=== PATIENT | male | born 1960 | race Caucasian/White ===

== ENCOUNTER 2017-07-28 09:26 | Emergency (ER) | payer OTHER ==
[2017-07-28] MEDS ORDERED: cloNIDine 0.1 MG TABLET PO STA (10:03)
--- NOTE | 2017-07-28 10:06 | ED Physician Documentation ---
History of Present Illness - Stated complaint Stated Complaint: HIGH BP - Chief complaint Chief Complaint: General - History obtained from History obtained from: Patient, Family - History of Present Illness Timing: How many days ago (3) - Additonal information Additional information: 56-year-old male with a history of hypertension has developed increased pressure that was noticed at his eye doctor's office. He has had diastolics over 110. He is on 2 medications for his hypertension he denies any excessive salt load. On further questioning he did have excessive salt load on the night prior to his initial high reading. This was 3 days ago. He indicates that last night he did not have any significant salt load. Review of Systems Constitutional: denies: Fever Eyes: denies: Decreased vision Ears: denies: Ear pain Nose: denies: Congestion Throat: denies: Sore throat Cardiac: denies: Chest pain / pressure, Palpitations Respiratory: denies: Dyspnea, Cough GI: denies: Abdominal Pain, Nausea, Vomiting : denies: Dysuria, Frequency Neurologic: reports: Headache. denies: Generalized weakness, Focal weakness, Numbness, Difficulty speaking, Head injury, LOC PD PAST MEDICAL HISTORY - Past Medical History Past Medical History: Yes Cardiovascular: Hypertension Respiratory: None Endocrine/Autoimmune: None GI: Colon polyps : None HEENT: None Psych: None Musculoskeletal: None Derm: None - Past Surgical History Past Surgical History: Yes General: Colonoscopy - Present Medications Home Medications: Ambulatory Orders Medication Instructions Recorded Confirmed Carvedilol 3.125 mg PO DAILY 09/12/14 09/12/14 Lisinopril 2.5 mg PO DAILY 09/12/14 09/12/14 Meloxicam 07/28/17 cloNIDine [Catapres] 0.1 mg PO BID #20 tablet 07/28/17 - Allergies Allergies/Adverse Reactions: Allergies Allergy/AdvReac Type Severity Reaction Status Date / Time No Known Drug Allergies Allergy Verified 09/12/14 08:08 - Social History Does the pt smoke?: No Smoking Status: Never smoker PD ED PE NORMAL - Vitals Vital signs reviewed: Yes (hypertensive marked ) - General General: Alert and oriented X 3, No acute distress, Well developed/nourished - HEENT HEENT: Atraumatic, PERRL, EOMI - Neck Neck: Supple, no meningeal sign - Cardiac Cardiac: RRR, No murmur - Respiratory Respiratory: No respiratory distress, Clear bilaterally - Abdomen Abdomen: Soft, Non tender - Back Back: No CVA TTP, No spinal TTP - Derm Derm: Normal color, Warm and dry, No rash - Extremities Extremities: No deformity, No edema - Neuro Neuro: Alert and oriented X 3, 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, No motor deficit, No sensory deficit, Normal speech Eye Opening: Spontaneous Motor: Obeys Commands Verbal: Oriented GCS Score: 15 - Psych Psych: Normal mood, Normal affect Results - Vitals Vitals: Vital Signs - 24 hr 07/28/17 07/28/17 07/28/17 09:30 10:20 11:05 Temperature 35.5 C L 36.3 C L Heart Rate 86 81 94 Respiratory 17 16 14 Rate Blood Pressure 193/130 H 166/126 H 153/122 H O2 Saturation 97 95 94 Oxygen O2 Source Room air - EKG (time done) 0946 Rate: Rate (enter#) (80) Rhythm: NSR Ischemia: Normal ST segments Other comments: Other comments (RSR' in V1) Compare to prior EKG: Old EKG unavailable Computer interpretation: Agree with computer - Labs Labs: Laboratory Tests 07/28/17 07/28/17 07/28/17 10:18 10:18 10:18 WBC 5.2 RBC 4.93 Hgb 15.7 Hct 46.0 MCV 93.3 MCH 31.8 H MCHC 34.1 RDW 12.8 Plt Count 182 MPV 8.1 Neut # 3.2 Lymph # 1.5 [place] # 0.4 Eos # 0.1 Baso # 0.0 Absolute Nucleated RBC 0.00 Nucleated RBC % 0.0 Sodium 137 Potassium 3.8 Chloride 104 Carbon Dioxide 23 Anion Gap 10.0 BUN 14 Creatinine 0.8 Estimated GFR (MDRD) 100 Glucose 113 H Calcium 9.0 Total Bilirubin 0.9 AST 23 ALT 26 Alkaline Phosphatase 41 L Troponin I < 0.04 Total Protein 7.1 Albumin 4.2 Globulin 2.9 Albumin/Globulin Ratio 1.4 Lipase 21 L Procedures - IVC sono (time) 1000 Bedside IVC sono: IVC measures (cm) (2.2), Euvolemia PD MEDICAL DECISION MAKING - ED course Complexity details: reviewed results, re-evaluated patient, considered differential, d/w patient, d/w family ED course: 56-year-old male with history of hypertension has had a salt load the night prior to his initial high readings (the pastrami pizza) and he has diastolics over 120. This morning he comes in with a headache and a diastolic of 130. He has normal volume by interrogation of the inferior vena cava and he is administered clonidine 0.1 mg orally. This does improve his blood pressure and I have encouraged him to avoid salt and repeat his blood pressure this evening after taking his medications and I have provided clonidine to take for diastolic elevation. I hesitate to add this medication to his regimen as I suspect he may not need this. Departure - Departure Disposition: Home, Self Care Clinical Impression: Hypertensive urgency Condition: Stable Instructions: Risk Factors High Blood Pressure, Choices Low Salt, ED Hypertension Conf Out Of Control Follow-Up: Sacha Son MD [Primary Care Provider] - Prescriptions: cloNIDine [Catapres] 0.1 mg PO BID #20 tablet Comments: Avoid salt in general and take your medications as usually prescribed. Take your blood pressure this evening after taking her blood pressure medication and if you still have diastolic blood pressure over 110 start taking the clonidine regularly.
[2017-07-28 10:28] LABS: BASOPHILS % (AUTO) 0.8 %; EOSINOPHILS # (AUTO) 0.1 10^3/uL (0.0-0.7); EOSINOPHILS % (AUTO) 1.9 %; HGB - HEMOGLOBIN 15.7 g/dL (14.0-18.0); LYMPHOCYTES # (AUTO) 1.5 10^3/uL (1.5-3.5); LYMPHOCYTES % (AUTO) 28.7 %; MEAN CORPUSCULAR HEMOGLOBIN 31.8 pg (27.0-31.0); MEAN CORPUSCULAR HGB CONC 34.1 g/dL (32.0-36.0); MEAN CORPUSCULAR VOLUME 93.3 fL (80.0-94.0); MEAN PLATELET VOLUME 8.1 fL (7.4-11.4); MONOCYTES # (AUTO) 0.4 10^3/uL (0.0-1.0); MONOCYTES % (AUTO) 7.4 %; NEUTROPHILS # (AUTO) 3.2 10^3/uL (1.5-6.6); NEUTROPHILS % (AUTO) 61.2 %; PLT - PLATELET COUNT 182 10^3/uL (130-450); RED BLOOD COUNT 4.93 10^6/uL (4.70-6.10); RED CELL DISTRIBUTION WIDTH 12.8 % (12.0-15.0); WHITE BLOOD COUNT 5.2 x10^3/uL (4.8-10.8)
[2017-07-28 10:41] LABS: ALBUMIN 4.2 g/dL (3.2-5.5); ALBUMIN/GLOBULIN RATIO 1.4 (1.0-2.2); BILIRUBIN,TOTAL 0.9 mg/dL (0.2-1.0); CREATININE 0.8 mg/dL (0.6-1.2); TOTAL PROTEIN 7.1 g/dL (6.7-8.2)
[2017-07-28 12:56] VITALS: BP 137/109
== END 2017-07-28 13:03 | disposition home or self-care (01) ==
LOC: ED 09:26
DX: I10 Essential (primary) hypertension (principal)
CPT/HCPCS: 36415; 80053; 83690; 84484; 85025; 93005; 99283; 99284; A9270

== ENCOUNTER 2018-04-27 22:13 | Emergency (ER) | payer OTHER ==
[2018-04-27 22:34] LABS: BILIRUBIN,URINE NEGATIVE (NEGATIVE); GLUCOSE, URINE (UA) NEGATIVE (NEGATIVE); KETONES,URINE (UA) 15 mg/dL (NEGATIVE); LEUKOCYTE ESTERASE, URINE NEGATIVE (NEGATIVE); NITRITE,URINE NEGATIVE (NEGATIVE); OCCULT BLOOD,URINE MODERATE (NEGATIVE); PROTEIN,URINE NEGATIVE (NEGATIVE); UROBILINOGEN,URINE 0.2 (NORMAL) E.U./dL (NORMAL)
[2018-04-27 22:36] LABS: CLARITY,URINE CLEAR (CLEAR)
--- NOTE | 2018-04-27 22:38 | ED Physician Documentation ---
PD HPI MALE - Stated complaint Stated Complaint: MALE - Chief complaint Chief Complaint: Abd Pain - History obtained from History obtained from: Patient - History of Present Illness Timing - onset: How many days ago Timing - details: Abrupt onset, Intermittant, Waxing and waning Pain level max: 6 Pain level now: 4 Associated symptoms: Hematuria, Abdominal pain Similar symptoms before: Has not had sx before Recently seen: Not recently seen - Additional information Additional information: has noticed dark urine for past 2 days, increased his fluid intake and this initially improved but worsened again today. tonight, he developed discomfort from scrotum up to suprapubic area and LLQ associated with nausea and vomiting. denies back pain. has had some painful urination. Review of Systems Constitutional: reports: Reviewed and negative Cardiac: reports: Reviewed and negative Respiratory: reports: Reviewed and negative GI: reports: Abdominal Pain, Nausea, Vomiting. denies: Constipation, Diarrhea : reports: Dysuria (mild), Frequency, Hematuria PD PAST MEDICAL HISTORY - Past Medical History Cardiovascular: Hypertension Respiratory: None Endocrine/Autoimmune: None GI: Colon polyps : None HEENT: None Psych: None Musculoskeletal: None Derm: None - Past Surgical History Past Surgical History: Yes General: Colonoscopy - Present Medications Home Medications: Ambulatory Orders Medication Instructions Recorded Confirmed Carvedilol 3.125 mg PO DAILY 09/12/14 09/12/14 Lisinopril 2.5 mg PO DAILY 09/12/14 09/12/14 Meloxicam 07/28/17 cloNIDine [Catapres] 0.1 mg PO BID #20 tablet 07/28/17 HYDROcod/ACETAM 5/325 [[place] 5/325] 1 - 2 ea PO Q6H PRN #15 tablet 04/28/18 Tamsulosin [Flomax] 0.4 mg PO DAILY #10 capsule 04/28/18 - Allergies Allergies/Adverse Reactions: Allergies Allergy/AdvReac Type Severity Reaction Status Date / Time No Known Drug Allergies Allergy Verified 04/27/18 22:19 - Social History Does the pt smoke?: No Smoking Status: Never smoker Does the pt drink ETOH?: Yes Does the pt have substance abuse?: No - Immunizations Immunizations are current?: Yes PD ED PE NORMAL - Vitals Vital signs reviewed: Yes - General General: Alert and oriented X 3, No acute distress, Well developed/nourished - Cardiac Cardiac: RRR, No murmur - Respiratory Respiratory: No respiratory distress, Clear bilaterally - Abdomen Abdomen: Soft, Non tender - Back Back: No CVA TTP Results - Vitals Vitals: Oxygen O2 Source Room air - Labs Labs: Laboratory Tests 04/27/18 04/27/18 04/27/18 22:25 23:25 23:25 WBC 6.3 RBC 4.67 L Hgb 15.2 Hct 43.9 MCV 94.1 H MCH 32.7 H MCHC 34.7 RDW 12.9 Plt Count 225 MPV 8.1 Neut # (Auto) 3.8 Lymph # (Auto) 1.8 [place] # (Auto) 0.5 Eos # (Auto) 0.1 Baso # (Auto) 0.1 Absolute Nucleated RBC 0.00 Nucleated RBC % 0.1 Sodium 138 Potassium 3.8 Chloride 102 Carbon Dioxide 21 Anion Gap 15.0 H BUN 33 H Creatinine 1.3 H Estimated GFR (MDRD) 57 L Glucose 100 Calcium 8.9 Urine Color YELLOW Urine Clarity CLEAR Urine pH 5.0 Ur Specific [place] >=1.030 H Urine Protein NEGATIVE Urine Glucose (UA) NEGATIVE Urine Ketones 15 H Urine Occult Blood MODERATE H Urine Nitrite NEGATIVE Urine Bilirubin NEGATIVE Urine Urobilinogen 0.2 (NORMAL) Ur Leukocyte Esterase NEGATIVE Urine RBC 0-5 Urine WBC 0-3 Ur Squamous Epith Cells NONE SEEN Urine Bacteria None Seen Ur Microscopic Review INDICATED Urine Culture Comments NOT INDICATED - Rads (name of study) CT A/P Radiology: Prelim report reviewed, See rad report PD MEDICAL DECISION MAKING - ED course Complexity details: reviewed results, re-evaluated patient, considered differential, d/w patient ED course: CT reveals small (2mm x 2mm) left UVJ ureteral calculus with mild hydroureter. his symptoms were mostly mild during ED stay, although immediately prior to d/c, as we were reviewing discharge instructions, he had sudden increase in pain that was the most severe since he had been in ED. I offered IM medications, but he was comfortable with 2 PO vicodin now and wanted to be discharged after he took them. he appeared to be more comfortable as he left the ED (and this was before the hydrocodone would have had a chance to take effect). provided strainer, rx for flomax and vicodin Departure - Departure Disposition: Home, Self Care Clinical Impression: Renal colic Condition: Good Instructions: ED Stone Renal W Colic Follow-Up: Sacha Son MD [Primary Care Provider] - (3-5 days if symptoms have not resolved) Prescriptions: HYDROcod/ACETAM 5/325 [[place] 5/325] 1 - 2 ea PO Q6H PRN #15 tablet PRN Reason: Pain Tamsulosin [Flomax] 0.4 mg PO DAILY #10 capsule Discharge Date/Time: 04/28/18 00:33
[2018-04-27 22:50] LABS: BACTERIA,URINE None Seen /HPF (None Seen); RBC,URINE 0-5 /HPF (0-5); SQUAMOUS EPITHELIAL CELL,UR NONE SEEN (<= Few)
[2018-04-27] MEDS ORDERED: PHENAZOPYRIDINE 100 MG TABLET PO STA (23:02)
[2018-04-27] MEDS ORDERED: PHENAZOPYRIDINE 100 MG TABLET PO ONE (23:21)
[2018-04-27 23:37] LABS: BASOPHILS # (AUTO) 0.1 10^3/uL (0.0-0.1); BASOPHILS % (AUTO) 1.2 %; EOSINOPHILS # (AUTO) 0.1 10^3/uL (0.0-0.7); EOSINOPHILS % (AUTO) 2.2 %; HGB - HEMOGLOBIN 15.2 g/dL (14.0-18.0); LYMPHOCYTES # (AUTO) 1.8 10^3/uL (1.5-3.5); LYMPHOCYTES % (AUTO) 28.5 %; MEAN CORPUSCULAR HEMOGLOBIN 32.7 pg (27.0-31.0); MEAN CORPUSCULAR HGB CONC 34.7 g/dL (32.0-36.0); MEAN CORPUSCULAR VOLUME 94.1 fL (80.0-94.0); MEAN PLATELET VOLUME 8.1 fL (7.4-11.4); MONOCYTES # (AUTO) 0.5 10^3/uL (0.0-1.0); MONOCYTES % (AUTO) 8.4 %; NEUTROPHILS # (AUTO) 3.8 10^3/uL (1.5-6.6); NEUTROPHILS % (AUTO) 59.7 %; PLT - PLATELET COUNT 225 10^3/uL (130-450); RED BLOOD COUNT 4.67 10^6/uL (4.70-6.10); RED CELL DISTRIBUTION WIDTH 12.9 % (12.0-15.0); WHITE BLOOD COUNT 6.3 x10^3/uL (4.8-10.8)
[2018-04-27 23:41] LABS: CALCIUM 8.9 mg/dL (8.5-10.3); CREATININE 1.3 mg/dL (0.6-1.2)
--- NOTE | 2018-04-27 23:56 | CT Report ---
Reason: hematuria, left flank pain Procedure Date: 04/27/2018 Accession Number: [id number] / [id number] Procedure: CT - Abdomen/Pelvis W/O CPT Code: FULL RESULT: EXAM: CT ABDOMEN AND PELVIS (CT KUB) EXAM DATE: 04/27/2018 11:40 PM. CLINICAL HISTORY: Hematuria, left flank pain. COMPARISONS: ABDOMEN/PELVIS W/ 02/14/2014 10:59 AM. TECHNIQUE: Routine axial helical CT imaging was performed through the abdomen and pelvis without IV contrast. Reconstructions: Coronal and sagittal. In accordance with CT protocol optimization, one or more of the following dose reduction techniques were utilized for this exam: automated exposure control, adjustment of mA and/or KV based on patient size, or use of iterative reconstructive technique. FINDINGS: Lung Bases: Unremarkable. Right Kidney/Ureter: No stones, hydronephrosis, or hydroureter. Tiny right renal cyst. Left Kidney/Ureter: Moderately obstructing 2 x 2 mm distal left ureteral stone within a few millimeters of the UVJ. Otherwise grossly unremarkable. Other Abdominal Organs: Noncontrast images of the abdominal organs are grossly unremarkable. Peritoneal Cavity: No free fluid, free air or brooke adenopathy. No excessive stool burden. Bowel is grossly unremarkable with exception of colonic diverticulosis. Pelvic Organs: No bladder stones or gross wall thickening. Of note, the urinary bladder dome extends into a right inguinal hernia. Noncontrast images of the visualized pelvic organs are unremarkable. Vasculature: Unremarkable. Other: Moderate to large right and small left inguinal hernias. Right inguinal hernia contains the bladder dome. IMPRESSION: 1. Moderately obstructing 2 x 2 mm distal left ureteral stone. 2. Moderate to large right inguinal hernia contains the bladder dome. 3. Small fat-containing left inguinal hernia. 4. Colonic diverticulosis. RADIA
[2018-04-28 00:06] VITALS: BP 144/100
[2018-04-28] MEDS ORDERED: HYDROcod/ACET 5/325 Prepack 4 PO STA (00:24)
[2018-04-28] MEDS ORDERED: TAMSULOSIN 0.4 MG CAPSULE PO STA (00:24)
== END 2018-04-28 00:33 | disposition home or self-care (01) ==
LOC: ED 22:13
DX: N20.1 Calculus of ureter (principal); K40.20 Bilateral inguinal hernia, without obstruction or gangrene, not specified as recurrent; K57.30 Diverticulosis of large intestine without perforation or abscess without bleeding; I10 Essential (primary) hypertension
CPT/HCPCS: 36415; 74176; 80048; 81001; 85025; 99283; A9270; 81003; 87086

== ENCOUNTER 2018-05-03 17:22 | Outpatient (CLI) | payer OTHER | END 2018-05-03 17:23 | disposition home or self-care (01) | LOC: LAB.R 17:22 | PROVIDERS: ATTEND Family Medicine | DX: N20.0 Calculus of kidney (principal) | CPT/HCPCS: 87086 ==

== ENCOUNTER 2018-08-19 02:50 | Outpatient (CLI) | payer OTHER | END 2018-08-19 02:51 | disposition short-term general hospital (02) | LOC: EMS 02:50 | PROVIDERS: ATTEND Surgery | DX: R41.82 Altered mental status, unspecified (principal) | CPT/HCPCS: A0425; A0427 ==

== ENCOUNTER 2018-08-19 03:01 | Emergency (ER) | payer OTHER ==
--- NOTE | 2018-08-19 03:18 | ED Physician Documentation ---
PD HPI SYNCOPE - Stated complaint Stated Complaint: SYNCOPE - Chief complaint Chief Complaint: General - History obtained from History obtained from: Patient, Family, EMS - History of Present Illness Witnessed: Unwitnessed Timing - onset: How many minutes ago (approximately 30-40 minutes [place]) Duration: Minutes Preceding symptoms: Light headed Associated symptoms: None Injury occurred: None Pain level max: 0 Pain level now: 0 Similar symptoms before: Has not had sx before Recently seen: Not recently seen - Additional information Additional information: has had three weeks of diarrhea, generalized malaise (just havent felt well). tonight he went to bathroom to have BM and felt lightheaded before sitting down, subsequently had syncopal episode. subsequently recovered completely to baseline, BIBA Review of Systems Constitutional: reports: Fatigue. denies: Fever Cardiac: reports: Reviewed and negative Respiratory: reports: Reviewed and negative GI: reports: Nausea, Diarrhea. denies: Abdominal Pain, Vomiting : denies: Dysuria, Frequency, Incontinent Musculoskeletal: reports: Reviewed and negative Neurologic: reports: Generalized weakness, Syncope. denies: Focal weakness, Numbness, Headache PD PAST MEDICAL HISTORY - Past Medical History Cardiovascular: Hypertension Respiratory: None Endocrine/Autoimmune: None GI: Colon polyps : None HEENT: None Psych: None Musculoskeletal: None Derm: None - Past Surgical History Past Surgical History: Yes General: Colonoscopy - Present Medications Home Medications: Ambulatory Orders Medication Instructions Recorded Confirmed Carvedilol 3.125 mg PO DAILY 09/12/14 09/12/14 Lisinopril 2.5 mg PO DAILY 09/12/14 09/12/14 Meloxicam 07/28/17 cloNIDine [Catapres] 0.1 mg PO BID #20 tablet 07/28/17 HYDROcod/ACETAM 5/325 [[place] 5/325] 1 - 2 ea PO Q6H PRN #15 tablet 04/28/18 Tamsulosin [Flomax] 0.4 mg PO DAILY #10 capsule 04/28/18 Ondansetron Odt [Zofran] 4 mg TL Q6H PRN #14 tablet 08/19/18 - Allergies Allergies/Adverse Reactions: Allergies Allergy/AdvReac Type Severity Reaction Status Date / Time No Known Drug Allergies Allergy Verified 08/19/18 03:10 - Social History Does the pt smoke?: No Smoking Status: Never smoker Does the pt drink ETOH?: Yes Does the pt have substance abuse?: No - Immunizations Immunizations are current?: Yes PD ED PE NORMAL - Vitals Vital signs reviewed: Yes - General General: Alert and oriented X 3, No acute distress, Well developed/nourished - HEENT HEENT: Atraumatic, PERRL, EOMI, Other (tacky/pasty mucous membranes) - Neck Neck: Supple, no meningeal sign, No bony TTP - Cardiac Cardiac: RRR, No murmur - Respiratory Respiratory: No respiratory distress, Clear bilaterally - Abdomen Abdomen: Normal bowel sounds, Soft, Non tender, Non distended - Back Back: No spinal TTP - Derm Derm: Normal color, Warm and dry, No rash - Neuro Neuro: Alert and oriented X 3, 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, No motor deficit, No sensory deficit, Normal speech Eye Opening: Spontaneous Motor: Obeys Commands Verbal: Oriented GCS Score: 15 Results - Vitals Vitals: Oxygen O2 Source Room air Oxygen Flow Rate 2 - EKG (time done) No standard instances Rate: Rate (enter#) (96) Rhythm: NSR [place]: Normal Intervals: Normal [place] QRS: Normal Ischemia: Normal ST segments - Labs Labs: Laboratory Tests 08/19/18 08/19/18 08/19/18 03:15 03:15 03:18 WBC 5.6 RBC 4.36 L Hgb 14.4 Hct 41.5 L MCV 95.1 H MCH 32.9 H MCHC 34.6 RDW 12.7 Plt Count 230 MPV 7.9 Neut # (Auto) 2.5 Lymph # (Auto) 2.4 [place] # (Auto) 0.6 Eos # (Auto) 0.1 Baso # (Auto) 0.0 Absolute Nucleated RBC 0.01 Nucleated RBC % 0.1 Sodium 138 Potassium 3.4 L Chloride 103 Carbon Dioxide 20 L Anion Gap 15.0 H BUN 36 H Creatinine 1.4 H Estimated GFR (MDRD) 52 L Glucose 136 H Calcium 8.8 Total Bilirubin 0.6 AST 24 ALT 23 Alkaline Phosphatase 46 Total Protein 6.8 Albumin 3.8 Globulin 3.0 Albumin/Globulin Ratio 1.3 Lipase 43 Influenza A (Rapid) Negative Influenza B (Rapid) Negative - Rads (name of study) chest xray Radiology: Prelim report reviewed, See rad report PD MEDICAL DECISION MAKING - ED course Complexity details: reviewed results, re-evaluated patient, considered differe ntial, d/w patient, d/w family Departure - Departure Disposition: 01 Home, Self Care Clinical Impression: Renal insufficiency Syncope Qualifiers: Syncope type: unspecified Qualified Code(s): R55 - Syncope and collapse Condition: Good Instructions: ED Fainting Unkn Cause, ED Insufficiency Renal, ED Dizziness Syncope Fainting W Pre Follow-Up: Sacha Son MD [Primary Care Provider] - Prescriptions: Ondansetron Odt [Zofran] 4 mg TL Q6H PRN #14 tablet PRN Reason: Nausea / Vomiting Discharge Date/Time: 08/19/18 05:56
[2018-08-19] MEDS ORDERED: ONDANSETRON 4 MG/2 ML VIAL IVP STA (03:21)
[2018-08-19] MEDS ORDERED: SODIUM CHLORIDE 0.9% 1,000 ML IV STA (03:22)
[2018-08-19 03:24] LABS: BASOPHILS % (AUTO) 0.7 %; EOSINOPHILS # (AUTO) 0.1 10^3/uL (0.0-0.7); HGB - HEMOGLOBIN 14.4 g/dL (14.0-18.0); LYMPHOCYTES # (AUTO) 2.4 10^3/uL (1.5-3.5); LYMPHOCYTES % (AUTO) 43.2 %; MEAN CORPUSCULAR HEMOGLOBIN 32.9 pg (27.0-31.0); MEAN CORPUSCULAR HGB CONC 34.6 g/dL (32.0-36.0); MEAN CORPUSCULAR VOLUME 95.1 fL (80.0-94.0); MEAN PLATELET VOLUME 7.9 fL (7.4-11.4); MONOCYTES # (AUTO) 0.6 10^3/uL (0.0-1.0); MONOCYTES % (AUTO) 10.4 %; NEUTROPHILS # (AUTO) 2.5 10^3/uL (1.5-6.6); NEUTROPHILS % (AUTO) 43.7 %; PLT - PLATELET COUNT 230 10^3/uL (130-450); RED BLOOD COUNT 4.36 10^6/uL (4.70-6.10); RED CELL DISTRIBUTION WIDTH 12.7 % (12.0-15.0); WHITE BLOOD COUNT 5.6 x10^3/uL (4.8-10.8)
[2018-08-19 03:38] LABS: ALBUMIN 3.8 g/dL (3.2-5.5); ALBUMIN/GLOBULIN RATIO 1.3 (1.0-2.2); BILIRUBIN,TOTAL 0.6 mg/dL (0.2-1.0); CALCIUM 8.8 mg/dL (8.5-10.3); CREATININE 1.4 mg/dL (0.6-1.2); TOTAL PROTEIN 6.8 g/dL (6.7-8.2)
[2018-08-19] MEDS ORDERED: SODIUM CHLORIDE 0.9% 1,000 ML IV ONE (04:25)
--- NOTE | 2018-08-19 04:26 | XRAY Report ---
Reason: syncope Procedure Date: 08/19/2018 Accession Number: [id number] / [id number] Procedure: XR - Chest 2 View X-Ray CPT Code: 18374 FULL RESULT: EXAM: CHEST RADIOGRAPHY EXAM DATE: 08/19/2018 04:20 AM. CLINICAL HISTORY: Syncope. COMPARISON: None. TECHNIQUE: 2 views. FINDINGS: Lungs/Pleura: No focal opacities evident. No pleural effusion. No pneumothorax. Normal volumes. Mediastinum: Heart and mediastinal contours are unremarkable. Other: None. IMPRESSION: Normal 2-view chest radiography. RADIA
[2018-08-19] MEDS ORDERED: ONDANSETRON ODT 4 MG Prepack 2 TL STA (05:41)
[2018-08-19 05:48] VITALS: BP 122/81
== END 2018-08-19 05:56 | disposition home or self-care (01) ==
LOC: EDUNIT# → ED 03:01
DX: R55 Syncope and collapse (principal); N28.9 Disorder of kidney and ureter, unspecified; I10 Essential (primary) hypertension
CPT/HCPCS: 36415; 71046; 80053; 83690; 85025; 87275; 87276; 93005; 96361; 96374; 99283; 99284

== ENCOUNTER 2018-12-21 13:08 | Outpatient (CLI) | payer OTHER | END 2018-12-21 23:59 | disposition home or self-care (01) | LOC: LAB.R 13:08 | PROVIDERS: ATTEND Family Medicine | DX: R19.7 Diarrhea, unspecified (principal) | CPT/HCPCS: 81599; 83630; 87045; 87046; 87329; 87493 ==

== ENCOUNTER 2020-01-18 09:34 | Day surgery (SDC) | payer OTHER ==
[2020-01-18] MEDS ORDERED: MIDAZOLAM 2 MG/2 ML VIAL IVP ONE (09:35)
[2020-01-18] MEDS ORDERED: fentaNYL 250 MCG/5 ML VIAL IVP ONE (09:35)
[2020-01-18] MEDS ORDERED: LACTATED RINGERS 1,000 ML IV ONE (10:10)
[2020-01-18 12:47] VITALS: BP 95/65
== END 2020-01-18 09:35 | disposition home or self-care (01) ==
LOC: SDS 09:34
PROVIDERS: ATTEND Surgery
PROC: 0DJD8ZZ Inspection of Lower Intestinal Tract, Via Natural or Artificial Opening Endoscopic (ICD-10-PCS; principal; 2020-01-18 11:00)
DX: Z12.11 Encounter for screening for malignant neoplasm of colon (principal); K64.8 Other hemorrhoids; K57.30 Diverticulosis of large intestine without perforation or abscess without bleeding; Q43.8 Other specified congenital malformations of intestine; Z72.0 Tobacco use; Z80.0 Family history of malignant neoplasm of digestive organs; Z86.010 Personal history of colon polyps
CPT/HCPCS: 45378; J3010; J7120

== ENCOUNTER 2021-05-20 16:04 | Emergency (ER) | payer OTHER ==
--- NOTE | 2021-05-20 16:37 | XRAY Report ---
PROCEDURE: Chest 1 View X-Ray INDICATIONS: Chest Pain TECHNIQUE: One view of the chest was acquired. COMPARISON: Chest x-ray dated 08/19/2018 FINDINGS: Surgical changes and devices: None. Lungs and pleura: No pleural effusions or pneumothorax. Lungs are clear. Mediastinum: Mediastinal contours appear normal. Heart size is normal. Bones and chest wall: No suspicious bony lesions. Overlying soft tissues appear unremarkable. IMPRESSION: No acute process. Reviewed by: Charleen Burns MD on 05/20/2021 4:36 PM PST Approved by: Charleen Burns MD on 05/20/2021 4:36 PM [facility] Station ID: [id number]
[2021-05-20 16:55] LABS: BASOPHILS % (AUTO) 0.4 %; EOSINOPHILS # (AUTO) 0.1 10^3/uL (0.0-0.7); EOSINOPHILS % (AUTO) 0.9 %; HCT - HEMATOCRIT 51.5 % (42.0-52.0); HGB - HEMOGLOBIN 17.3 g/dL (14.0-18.0); LYMPHOCYTES # (AUTO) 2.1 10^3/uL (1.5-3.5); LYMPHOCYTES % (AUTO) 23.6 %; MEAN CORPUSCULAR HEMOGLOBIN 32.1 pg (27.0-31.0); MEAN CORPUSCULAR HGB CONC 33.6 g/dL (32.0-36.0); MEAN CORPUSCULAR VOLUME 95.5 fL (80.0-94.0); MEAN PLATELET VOLUME 9.7 fL (7.4-11.4); MONOCYTES # (AUTO) 0.8 10^3/uL (0.0-1.0); MONOCYTES % (AUTO) 8.6 %; NEUTROPHILS # (AUTO) 5.9 10^3/uL (1.5-6.6); NEUTROPHILS % (AUTO) 66.2 %; PLT - PLATELET COUNT 240 10^3/uL (130-450); RED BLOOD COUNT 5.39 10^6/uL (4.70-6.10); RED CELL DISTRIBUTION WIDTH 12.1 % (12.0-15.0)
[2021-05-20 17:10] LABS: ALBUMIN 4.7 g/dL (3.2-5.5); ALBUMIN/GLOBULIN RATIO 1.4 (1.0-2.2); BILIRUBIN,TOTAL 0.7 mg/dL (0.2-1.0); CALCIUM 9.7 mg/dL (8.5-10.3); CREATININE 1.2 mg/dL (0.6-1.2); POTASSIUM 3.9 mmol/L (3.5-5.0); TOTAL PROTEIN 8.1 g/dL (6.7-8.2)
--- NOTE | 2021-05-20 17:15 | ED Physician Documentation ---
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 He has had pain since then especially with movement of the left arm but now has progressive shortness of breath and orthopnea. He denies pedal edema or calf pain. Review of Systems Constitutional: denies: Fever, Chills Eyes: reports: Reviewed and negative Ears: reports: Reviewed and negative Nose: reports: Reviewed and negative PD PAST MEDICAL HISTORY - Past Medical History Cardiovascular: Hypertension Respiratory: None Endocrine/Autoimmune: None GI: GERD, Colon polyps : Kidney stones HEENT: None Psych: None Musculoskeletal: None Derm: None - Past Surgical History Past Surgical History: Yes General: Other - Present Medications Home Medications: Ambulatory Orders Medication Instructions Recorded Confirmed carvediloL [Carvedilol] 3.125 mg PO DAILY 09/12/14 09/12/14 lisinopriL [Lisinopril] 2.5 mg PO DAILY 09/12/14 01/18/20 Meloxicam 15 mg PO DAILY 07/28/17 01/18/20 Losartan [Cozaar] 25 mg PO DAILY 01/18/20 01/18/20 Metoprolol Succinate [[place]sp[place] 50 mg PO DAILY 01/18/20 01/18/20 Sprinkle] Omeprazole 20 mg PO DAILY 01/18/20 01/18/20 - Allergies Allergies/Adverse Reactions: Allergies Allergy/AdvReac Type Severity Reaction Status Date / Time No Known Drug Allergies Allergy Verified 05/20/21 16:11 - Social History Does the pt smoke?: No Smoking Status: Never smoker Does the pt drink ETOH?: Yes Does the pt have substance abuse?: No - Immunizations Immunizations are current?: Yes PD ED PE NORMAL - Vitals Vital signs reviewed: Yes - General General: Alert and oriented X 3, No acute distress - HEENT HEENT: PERRL, EOMI - Neck Neck: Supple, no meningeal sign, No bony TTP - Cardiac Cardiac: RRR, No murmur - Respiratory Respiratory: No respiratory distress, Clear bilaterally, Other (bruiding L ant/lat mid L chest wall) - Abdomen Abdomen: Soft, Non tender - Back Back: No CVA TTP, No spinal TTP - Derm Derm: Normal color, Warm and dry - Extremities Extremities: No edema, No calf tenderness / cord - Neuro Neuro: Alert and oriented X 3, Normal speech Results - Vitals Vitals: Vital Signs - 24 hr 05/20/21 05/20/21 05/20/21 16:14 18:59 19:27 Temperature 36.4 C L 36.5 C Heart Rate 91 82 81 Respiratory 20 18 18 Rate Blood Pressure 139/104 H 128/91 H O2 Saturation 96 96 97 Oxygen O2 Source Room air - EKG (time done) 1614 Rate: Rate (enter#) (98) Rhythm: NSR [place]: Normal Intervals: Normal [place] QRS: Normal Ischemia: Non specific changes Computer interpretation: Agree with computer - Labs Labs: Laboratory Tests 05/20/21 05/20/21 05/20/21 16:50 16:50 16:50 WBC 9.0 RBC 5.39 Hgb 17.3 Hct 51.5 MCV 95.5 H MCH 32.1 H MCHC 33.6 RDW 12.1 Plt Count 240 MPV 9.7 Neut # (Auto) 5.9 Lymph # (Auto) 2.1 [place] # (Auto) 0.8 Eos # (Auto) 0.1 Baso # (Auto) 0.0 Absolute Nucleated RBC 0.00 Nucleated RBC % 0.0 Sodium 139 Potassium 3.9 Chloride 103 Carbon Dioxide 25 Anion Gap 11.0 BUN 28 H Creatinine 1.2 Estimated GFR (MDRD) 62 L Glucose 109 H Calcium 9.7 Total Bilirubin 0.7 AST 23 ALT 28 Alkaline Phosphatase 46 Troponin I High Sens 14.6 B-Natriuretic Peptide Total Protein 8.1 Albumin 4.7 Globulin 3.4 Albumin/Globulin Ratio 1.4 Lipase 35 05/20/21 17:20 WBC RBC Hgb Hct MCV MCH MCHC RDW Plt Count MPV Neut # (Auto) Lymph # (Auto) [place] # (Auto) Eos # (Auto) Baso # (Auto) Absolute Nucleated RBC Nucleated RBC % Sodium Potassium Chloride Carbon Dioxide Anion Gap BUN Creatinine Estimated GFR (MDRD) Glucose Calcium Total Bilirubin AST ALT Alkaline Phosphatase Troponin I High Sens B-Natriuretic Peptide 39 Total Protein Albumin Globulin Albumin/Globulin Ratio Lipase - Rads (name of study) CT pulmonary angiogram notable for linear sclerosis along third rib potentially consistent with rib fracture, otherwise negative Radiology: EMP read contemporaneously PD MEDICAL DECISION MAKING - ED course ED course: 60-year-old gentleman sustained chest wall trauma about 6 days ago and now has shortness of breath and some orthopnea but without really an exertional component. He was worked up here and there is no evidence of CHF, PE, or cardiac issue. He does have probably a single nondisplaced rib fracture. He declined pain medication. Departure - Departure Disposition: 01 Home, Self Care Clinical Impression: Chest wall pain Left rib fracture Qualifiers: Encounter type: initial encounter Rib fracture type: single rib Fracture type: closed Qualified Code(s): S22.32XA - Fracture of one rib, left side, initial encounter for closed fracture Dyspnea Qualifiers: Dyspnea type: dyspnea on exertion Qualified Code(s): R06.00 - Dyspnea, unspecified Condition: Good Record reviewed to determine appropriate education?: Yes Instructions: ED Fx Rib Comments: No evidence of heart issue, heart failure, blood clots in the lungs. You do have a single rib fracture on the left. Return for new or worsening symptoms. Tylenol or ibuprofen as needed for pain. Discharge Date/Time: 05/20/21 19:28
[2021-05-20] MEDS ORDERED: IOVERSOL 320 100 ML VIAL IVP ONE ×2 (17:25→18:09)
--- NOTE | 2021-05-20 19:05 | CT Report ---
PROCEDURE: CT chest angiogram with contrast INDICATIONS: Pe protocol, L chest pain CONTRAST: IV CONTRAST: Optiray 320 ml: 80 PO CONTRAST: *NO PO CONTRAST TECHNIQUE: After the administration of intravenous contrast, 2 mm axial images were acquired from the pulmonary apices to the posterior costophrenic angles during the arterial phase. In addition, 1 mm lung kernel and 5 mm soft tissue kernel reconstructions were performed. coronal oblique maximum intensity project ion (MIP) reformats, 8 mm axial MIP, and 5 mm coronal and sagittal MPR reformats were then performed through the thorax. For radiation dose reduction, the following was used: automated exposure control, adjustment of mA and/or kV according to patient size. COMPARISON: None FINDINGS: Image quality: Excellent. Pulmonary arteries: Pulmonary arteries are normal in size, and demonstrate no intraluminal filling d efects to suggest central pulmonary embolism. Lungs and pleura: Lungs are clear. No pleural effusions or pneumothorax. Central and peripheral ai rways are patent. Mediastinum: Heart size is normal, without pericardial effusion. No mediastinal or hilar adenopathy . Thoracic aorta is normal in caliber and enhancement. Esophagus is normal in caliber, without hiat al hernia. Bones and chest wall: No suspicious bony lesions. Linear sclerotic band noted associated with the an terior left third rib. No axillary or supraclavicular adenopathy. The thyroid is normal in size and there are no incidental findings. Abdomen: Visualized upper abdominal solid organs appear normal in the early arterial phase of enhanc ement. IMPRESSION: Unremarkable CT angiogram of the chest without evidence of pulmonary embolism. No pneumothorax. Lungs and pleural spaces are clear. Linear sclerosis in the left anterior third rib that may reflect nondisplaced subacute fracture Reviewed by: Thomas Reveles MD on 05/20/2021 6:04 PM [place] Approved by: Thomas Reveles MD on 05/20/2021 6:04 PM [place] Station ID: [id number]
[2021-05-20 19:28] VITALS: BP 128/91
== END 2021-05-20 19:28 | disposition home or self-care (01) ==
LOC: ED 16:04
DX: S22.32XA Fracture of one rib, left side, initial encounter for closed fracture (principal); W18.30XA Fall on same level, unspecified, initial encounter; R06.00 Dyspnea, unspecified; I10 Essential (primary) hypertension
CPT/HCPCS: 36415; 71045; 71275; 80053; 83690; 83880; 84484; 85025; 93005; 99283; 99284; Q9967

== ENCOUNTER 2021-07-26 09:09 | Outpatient (CLI) | payer OTHER ==
[2021-07-26 13:51] LABS: BASOPHILS # (AUTO) 0.1 10^3/uL (0.0-0.1); BASOPHILS % (AUTO) 0.9 %; EOSINOPHILS # (AUTO) 0.2 10^3/uL (0.0-0.7); EOSINOPHILS % (AUTO) 3.2 %; HCT - HEMATOCRIT 50.8 % (42.0-52.0); HGB - HEMOGLOBIN 16.7 g/dL (14.0-18.0); LYMPHOCYTES # (AUTO) 2.3 10^3/uL (1.5-3.5); LYMPHOCYTES % (AUTO) 39.9 %; MEAN CORPUSCULAR HEMOGLOBIN 31.2 pg (27.0-31.0); MEAN CORPUSCULAR HGB CONC 32.9 g/dL (32.0-36.0); MEAN PLATELET VOLUME 11.1 fL (7.4-11.4); MONOCYTES # (AUTO) 0.6 10^3/uL (0.0-1.0); NEUTROPHILS # (AUTO) 2.5 10^3/uL (1.5-6.6); NEUTROPHILS % (AUTO) 44.6 %; PLT - PLATELET COUNT 221 10^3/uL (130-450); RED BLOOD COUNT 5.35 10^6/uL (4.70-6.10); RED CELL DISTRIBUTION WIDTH 11.9 % (12.0-15.0); WHITE BLOOD COUNT 5.6 x10^3/uL (4.8-10.8)
[2021-07-26 14:17] LABS: ALBUMIN 4.2 g/dL (3.2-5.5); ALBUMIN/GLOBULIN RATIO 1.3 (1.0-2.2); ALKALINE PHOSPHATASE 47 IU/L (42-121); ALT ALANINE AMINOTRANSFERASE 31 IU/L (10-60); AST ASPARTATE AMINOTRANSFERASE 27 IU/L (10-42); BILIRUBIN,TOTAL 0.9 mg/dL (0.2-1.0); BUN - BLOOD UREA NITROGEN 26 mg/dL (6-20); CALCIUM 9.6 mg/dL (8.5-10.3); CARBON DIOXIDE - CO2 27 mmol/L (21-32); CHLORIDE 103 mmol/L (101-111); CHOLESTEROL 222 mg/dL; CREATININE 1.2 mg/dL (0.6-1.2); GFR - MDRD 62 (>89); GLUCOSE 109 mg/dL (70-100); HDL CHOLESTEROL 44 mg/dL; LDL CHOLESTEROL,CALCULATED 117 mg/dL; LDL/HDL RATIO 2.7 (<3.6); POTASSIUM 3.9 mmol/L (3.5-5.0); SODIUM 141 mmol/L (135-145); TOTAL PROTEIN 7.4 g/dL (6.7-8.2); TRIGLYCERIDES 306 mg/dL; VLDL CHOLESTEROL 61 mg/dL
[2021-07-26 14:20] LABS: THYROID STIMULATING HORMONE 0.8 uIU/mL (0.34-5.60)
== END 2021-07-26 09:10 | disposition home or self-care (01) ==
LOC: LAB.N 09:09
PROVIDERS: ATTEND Internal Medicine
DX: N28.9 Disorder of kidney and ureter, unspecified (principal); I10 Essential (primary) hypertension; E78.5 Hyperlipidemia, unspecified; Z12.5 Encounter for screening for malignant neoplasm of prostate
CPT/HCPCS: 36415; 80053; 80061; 83721; 84153; 84443; 85025

== ENCOUNTER 2023-04-13 09:21 | Outpatient (CLI) | payer OTHER ==
--- NOTE | 2023-04-13 13:39 | CT Report ---
PROCEDURE: HEAD WO INDICATIONS: TIA TECHNIQUE: Noncontrast 4.5 mm thick angled axial sections acquired from the foramen magnum to the vertex. For r adiation dose reduction, the following was used: automated exposure control, adjustment of mA and/or kV according to patient size. COMPARISON: None. FINDINGS: Image quality: Excellent. CSF spaces: Basal cisterns are patent. No extra-axial fluid collections. Ventricles are normal in size and shape. Brain: No midline shift. No intracranial masses or hemorrhage. Lopes-white matter interface is norm al. Skull and face: Calvarium and visualized facial bones are intact, without suspicious lesions. Postsu rgical changes, left globe. Sinuses: Small bilateral maxillary sinus is retention cysts. Left sphenoid sinus mucus retention cyst . IMPRESSION: No acute intracranial pathology. Reviewed by: Tra Yap MD on 04/13/2023 1:37 PM PDT Approved by: Tra Yap MD on 04/13/2023 1:37 PM PDT Station ID: [id number]
== END 2023-04-13 09:22 | disposition home or self-care (01) ==
LOC: DI 09:21
PROVIDERS: ATTEND Physician Assistant Medical
DX: G45.9 Transient cerebral ischemic attack, unspecified (principal); I35.8 Other nonrheumatic aortic valve disorders; I77.819 Aortic ectasia, unspecified site
CPT/HCPCS: 93306

== ENCOUNTER 2023-04-13 15:23 | Outpatient (CLI) | payer OTHER | END 2023-04-13 15:24 | disposition home or self-care (01) | LOC: DI 15:23 | PROVIDERS: ATTEND Physician Assistant Medical | DX: G45.9 Transient cerebral ischemic attack, unspecified (principal); I35.8 Other nonrheumatic aortic valve disorders; I77.819 Aortic ectasia, unspecified site | CPT/HCPCS: 93306 ==

== ENCOUNTER 2023-04-14 14:56 | Outpatient (CLI) | payer OTHER ==
--- NOTE | 2023-04-14 16:31 | Ultrasound Report ---
PROCEDURE: Carotid Doppler Complete INDICATIONS: TIA TECHNIQUE: Color and pulse Doppler interrogation was performed of both carotid systems, with image documentation and velocity measurements. COMPARISON: None. FINDINGS: Right side: Brachial blood pressure: 140/95 mm Hg. Common carotid artery peak systolic velocity: 73 cm/sec. Internal carotid artery peak systolic velocity: 81 cm/sec. Internal carotid artery end diastolic velocity: 18 cm/sec. External carotid artery peak systolic velocity: 74 cm/sec. ICA/CCA peak systolic ratio: 1.11 . Lopes scale imaging description: No significant atherosclerotic plaque. Tortuosity. Percent internal carotid artery stenosis: No hemodynamically significant stenosis. Vertebral artery: Flow direction is antegrade. Left side: Brachial blood pressure: 130/96 mm Hg. Common carotid artery peak systolic velocity: 77 cm/sec. Internal carotid artery peak systolic velocity: 1 cm/sec. Internal carotid artery end diastolic velocity: 17 cm/sec. External carotid artery peak systolic velocity: 67 cm/sec. ICA/CCA peak systolic ratio: 0.65 . Lopes scale imaging description: No significant atherosclerotic plaque. Tortuosity. Percent internal carotid artery stenosis: No hemodynamically significant stenosis. Vertebral artery: Flow direction is antegrade. IMPRESSION: 1. In the right internal carotid artery, there is no hemodynamically significant stenosis based on pe ak systolic velocity criteria. Tortuosity of the internal carotid arteries. 2. In the left internal carotid artery, there is no hemodynamically significant stenosis based on pea k systolic velocity criteria. Tortuosity of the internal carotid arteries. 3. Antegrade blood flow within the right vertebral artery. 4. Antegrade blood flow within the left vertebral artery. The estimate of stenosis included in the report of the imaging study was calculated using the [facility]-end orsed standards of carotid artery stenosis. Reviewed by: Gama Orantes MD on 04/14/2023 4:29 PM PDT Approved by: Gama Orantes MD on 04/14/2023 4:29 PM PDT Station ID: [id number]
== END 2023-04-14 14:57 | disposition home or self-care (01) ==
LOC: DI 14:56
PROVIDERS: ATTEND Physician Assistant Medical
DX: G45.9 Transient cerebral ischemic attack, unspecified (principal)
CPT/HCPCS: 93880

== ENCOUNTER 2023-06-07 09:31 | Day surgery (SDC) | payer OTHER ==
[~2023-06-07 09:31] MED LIST: LIDOCAINE 2% URO-JET 5 ML SYRINGE UR ONE; ceFAZolin 2 GM VIAL ONE
[2023-06-07] MEDS ORDERED: LACTATED RINGERS 1,000 ML IV ONE ×2 (09:59→11:50)
[2023-06-07] MEDS ORDERED: ePHEDrine 50 MG/ML VIAL IVP PRN (10:42)
[2023-06-07] MEDS ORDERED: ONDANSETRON 4 MG/2 ML VIAL IVP PRN (10:42)
[2023-06-07] MEDS ORDERED: ATROPINE ABBOJECT 1 MG/10 ML SYRINGE IVP PRN (10:42)
[2023-06-07] MEDS ORDERED: METOCLOPRAMIDE 10 MG/2 ML VIAL IVP PRN (10:42)
[2023-06-07] MEDS ORDERED: fentaNYL 100 MCG/2 ML VIAL IVP PRN (10:42)
[2023-06-07] MEDS ORDERED: MORPHINE 2 MG/ML CARPUJECT IVP PRN (10:42)
[2023-06-07] MEDS ORDERED: HYDROmorphone 0.5 MG/0.5 ML SYRINGE IVP PRN (10:42)
[2023-06-07] MEDS ORDERED: NALOXONE 0.4 MG/ML VIAL IVP PRN (10:42)
--- NOTE | 2023-06-07 10:42 | ANESTHESIA ---
Pre-Anesthesia VS, & Labs - Diagnosis kidney stone - Procedure ureteroscopy, lithotripsy, stent exchange Vital Signs: Temp Pulse Resp BP Pulse Ox O2 Flow Rate 36.3 C L 78 10 L 127/102 H 98 0 06/07/23 10:00 06/07/23 10:00 06/07/23 10:00 06/07/23 10:00 06/07/23 10:00 06/07/23 10:00 Height: 5 ft 10 in Weight (kg): 103.9 kg Body Mass Index: 32.8 BMI Classification: Obese - NPO >8 hours Home Medications and Allergies Home Medications: Ambulatory Orders Acetaminophen [Tylenol] 650 mg PO Q6H PRN 05/31/23 Aspirin [Aspirin EC] 81 mg PO 05/31/23 Ibuprofen [Motrin] 600 mg PO Q6H PRN 05/31/23 Metoprolol Succinate [Toprol Xl] 12.5 mg PO BID 05/31/23 Rosuvastatin Calcium [Crestor] 10 mg PO DAILY 05/31/23 Sildenafil Citrate 50 mg PO ONCE PRN 05/31/23 Triamterene/Hydrochlorothiazid [Triamterene-Hctz 37.5-25 mg Cp] 1 each PO DAILY 05/31/23 Ciprofloxacin [Cipro] 250 mg ORAL BID 06/04/23 Metoprolol Succinate [Kapsp[place] Sprinkle] 50 mg PO DAILY 01/18/20 Acetaminophen [Tylenol] 650 mg PO Q6H PRN 05/31/23 Aspirin [Aspirin EC] 81 mg PO 05/31/23 Ibuprofen [Motrin] 600 mg PO Q6H PRN 05/31/23 Metoprolol Succinate [Toprol Xl] 12.5 mg PO BID 05/31/23 Rosuvastatin Calcium [Crestor] 10 mg PO DAILY 05/31/23 Sildenafil Citrate 50 mg PO ONCE PRN 05/31/23 Triamterene/Hydrochlorothiazid [Triamterene-Hctz 37.5-25 mg Cp] 1 each PO DAILY 05/31/23 Ciprofloxacin [Cipro] 250 mg ORAL BID 06/04/23 Allergies/Adverse Reactions: Allergies Allergy/AdvReac Type Severity Reaction Status Date / Time No Known Drug Allergies Allergy Verified 06/07/23 09:02 Anes History & Medical History - Anesthetic History Anesthesia Complications: reports: No previous complications Family history of Anesthesia Complications: Denies Family history of Malignant Hyperthermia: Denies - Medical History Cardiovascular: reports: Hypertension Pulmonary: reports: None Gastrointestinal: reports: GERD, Colon polyps Urinary: reports: Kidney stones Musculoskeletal: reports: None Endocrine/Autoimmune: reports: None Skin: reports: None Smoking Status: Never smoker Psychosocial: reports: Alcohol, Cannabis - Surgical History General: reports: Other Eyes Ears Nose Throat (EENT): reports: Cataracts Exam General: Alert, Oriented x3, Cooperative Dental: WNL Mouth Openin Fingerbreadth Neck Mobility: Normal Mallampati classification: II Thyromental Distance: 4-6 cm Respiratory: Lungs clear Cardiovascular: Regular rate Plan Anesthesia Type: General Consent for Procedure(s) Verified and Reviewed: Yes Code Status: Attempt Resuscitation ASA classification: 2-Mild systemic disease Is this case an emergency?: No
[2023-06-07] MEDS ORDERED: ROCURONIUM 50 MG/5 ML VIAL ONE (10:46)
[2023-06-07] MEDS ORDERED: fentaNYL 100 MCG/2 ML VIAL ONE (10:46)
[2023-06-07] MEDS ORDERED: PROPOFOL 200 MG/20 ML VIAL IVP ONE (10:46)
[2023-06-07] MEDS ORDERED: MIDAZOLAM 2 MG/2 ML VIAL ONE (10:46)
[2023-06-07] MEDS ORDERED: LACTATED RINGERS 1,000 ML IV SCH (11:00)
[2023-06-07] MEDS ORDERED: LIDOCAINE 2% URO-JET 5 ML SYRINGE UR ONE (11:16)
[2023-06-07] MEDS ORDERED: DEXAMETHASONE 4 MG/ML VIAL ONE (11:17)
[2023-06-07] MEDS ORDERED: ONDANSETRON 4 MG/2 ML VIAL ONE (11:17)
[2023-06-07] MEDS ORDERED: SUGAMMADEX 200 MG/2 ML VIAL IVP ONE (11:25)
[2023-06-07] MEDS ORDERED: SEVOFLURANE 250 ML LIQUID INH ONE (11:36)
[2023-06-07] MEDS ORDERED: HYDROcod/ACETAM 5/325 MG TABLET PO PRN (11:41)
--- NOTE | 2023-06-07 11:46 | Discharge Plan ---
Discharge Plan Problem Reviewed?: Yes Disposition: Home, Self Care Condition: Good Prescriptions: Ciprofloxacin HCl [Cipro] 500 mg PO ONCE #1 tablet Docusate Sodium 100Mg Capsule [Colace 100Mg Capsule] 100 mg PO DAILY #10 cap HYDROcod/ACETAM 5/325 [Bath 5/325] 1 tab PO Q4H PRN #10 tablet PRN Reason: Pain Diet: Regular Activity Restrictions: No Restrictions Shower Restrictions: No Driving Restrictions: No Instruction Topics: Stents Ureteral Additional Instructions or Follow Up instructions: You will be contacted for follow-up in 1 to 2 weeks for cystoscopy and stent removal in the office with Dr. Michelle. Please take antibiotic as prescribed on the way to that appointment. No Smoking: If you smoke, Please STOP! Call for help. Follow-up with: Laura You PA-C [Primary Care Provider] -
--- NOTE | 2023-06-07 11:47 | OPERATIVE REPORT ---
Operative Report - General Procedure Date: 06/07/23 Planned Procedure: Cystoscopy, left ureteroscopy, laser lithotripsy and stent exchange Pre-Op Diagnosis: Left ureteral stone Procedure Performed: Cystoscopy, left ureteroscopy, laser lithotripsy and stent exchange Post Op Diagnosis: Left ureteral stone - Procedure Note Primary Surgeon: Miguel Angel Anesthesia Provider: MAY Garcia Pathology: left ureteral stone Findings: Left proximal yellow soft stone, dusted/fragmented. Stone radiolucent - Other Other Information/Narrative: After informed consent was obtained the patient was brought to the OR and laid the supine position. The patient was anesthetized per anesthesia protocols and placed in dorsolithotomy position. He was prepped and draped in usual sterile fashion. A formal timeout was performed reconfirming the patient, procedure and lateralit y. Fluoroscopy showed that there was a prior left ureteral stent in place. No stone could be seen on fluoroscopy. A 22 [place] the scope was advanced easily into urinary bladder bladder inspected and full there are no masses lesions or other concerns there was stent emanating from left ureteral orifice. The UO was slightly more posterior located than normal orthotopic position. A sensor wire was placed next to the wire and then a second wire was placed next as well and then the old stent was grasped and removed. A flexible ureteroscope was advanced up to the ureter to the proximal ureter where we met some resistance and there we could see that there was a large 1 cm soft yellow stone. Using a 200 m laser fiber at a power of 0.8 and a rate of 8 we dusted the stone to small pieces we then made a few smaller fragments. Using a basket these were grasped and removed. We then cleared the ureter for any large stones. There was only dust remaining there were no stones seen in the kidney as well. We then placed a 6 [place] 26 cm double-J ureteral stent with good curling noted in the kidney and good curling noted in the bladder under fluoroscopic and cystoscopic guidance. His bladder was emptied and a Uro-Jet was placed. This concluded the procedure patient tolerated procedure well was brought to PACU without further incident. All counts were correct. He will follow-up in 1 to 2 weeks time for cystoscopy and stent removal in the office.
[2023-06-07 12:28] VITALS: BP 122/102; O2SAT 96
[2023-06-07] MEDS ORDERED: HYDROcod/ACETAM 5/325 MG TABLET ONE (12:40)
--- NOTE | 2023-06-07 15:28 | XRAY Report ---
PROCEDURE: OR C-Arm Procedure INDICATIONS: LASER LITHOTRIPSY, STENT EXCHANGE FLUORO TIME: 0.2 TECHNIQUE: One intraoperative fluoroscopic image COMPARISON: None. FINDINGS: 1 intraoperative fluoroscopic image of the flank is provided for nondiagnostic interpretation. Fluoroscopy time: 0.2 seconds Cumulative dose (air kerma): 8 mGy IMPRESSION: 1 intraoperative fluoroscopic image is provided for nondiagnostic interpretation. Please see operativ e report for details. Reviewed by: Yvette Nelson MD on 06/07/2023 3:26 PM PST Approved by: Yvette Nelson MD on 06/07/2023 3:26 PM PST Station ID: [id number]
--- NOTE | 2023-06-07 15:59 | ANESTHESIA POST OP EVALUATION ---
Anesthesia Post Eval - Post Anesthesia Eval Vitals: Last Vital Signs Temp 36.7 C 06/07/23 12:23 Pulse 74 06/07/23 12:24 Resp 14 06/07/23 12:24 BP 122/102 H 06/07/23 12:24 Pulse Ox 96 06/07/23 12:24 O2 Flow Rate 0 06/07/23 10:00 CV Function Including HR & BP: Stable Pain Control: Satisfactory Nausea & Vomiting: Negative Mental Status: Baseline Respiratory Status: Airway Patent Hydration Status: Satisfactory Anesthesia Complications: None
[2023-06-15 13:10] LABS: STONE COLOR Brown (.); STONE WEIGHT 32 mg (.)
== END 2023-06-07 09:32 | disposition home or self-care (01) ==
LOC: SDS 09:31
PROVIDERS: ATTEND Urology
DX: N20.1 Calculus of ureter (principal); I12.9 Hypertensive chronic kidney disease with stage 1 through stage 4 chronic kidney disease, or unspecified chronic kidney disease; N18.2 Chronic kidney disease, stage 2 (mild); E66.9 Obesity, unspecified; Z68.32 Body mass index [BMI] 32.0-32.9, adult
CPT/HCPCS: 52356; 82365; A9270; C1758; C2617; J3490; J7120

== ENCOUNTER 2023-09-16 08:00 | Outpatient (CLI) | payer OTHER ==
--- NOTE | 2023-09-16 15:53 | XRAY Report ---
PROCEDURE: Abdomen 1 View (KUB) INDICATIONS: KIDNEY STONES TECHNIQUE: 2 views of the abdomen. COMPARISON: CT abdomen and pelvis without contrast 04/27/2018. FINDINGS: No kidney stones identified. Scattered bowel gas. No dilated loops of bowel identified. No suspicious osseous lesion. IMPRESSION: No kidney stones identified. Reviewed by: Nicholas Cueva MD on 09/16/2023 3:51 PM PDT Approved by: Nicholas Cueva MD on 09/16/2023 3:51 PM PDT Station ID: [id number]
== END 2023-09-16 23:59 | disposition home or self-care (01) ==
LOC: DI.WOS 08:00
PROVIDERS: ATTEND Urology
DX: N20.0 Calculus of kidney (principal)